=== PATIENT | female | born 1940 | race Caucasian/White ===

== ENCOUNTER → 2016-07-30 | Outpatient (CLI) | payer MEDICARE, OTHER ==
--- NOTE | 2016-07-31 08:19 | WOMENS IMAGING REPORT ---
EXAM DESCRIPTION: BILAT SCREENING MAMMO W/CAD COMPLETED DATE/TIME: 07/30/2016 8:41 am REASON FOR STUDY: Z12.31 ROUTINE SCREENING MAMMO Z12.31 ENCNTR SCREEN MAMMOGRAM FOR MALIGNANT NEOPL ASM OF [place] COMPARISON: Multiple since 2007 TECHNIQUE: Standard craniocaudal and mediolateral oblique views of each breast recorded using [employer] l acquisition. LIMITATIONS: None. FINDINGS: Findings present which are benign by mammographic criteria. No suspicious masses, calcifi cations or architectural distortion. Read with the assistance of CAD. .[facility] - R2 Cenova Version 1.3 .[facility] Imaging - R2 Cenova Version 1.3 .[facility] Imaging - R2 Cenova Version 2.4 .[facility] [place] - R2 Cenova Version 2.4 .[facility] - R2 Warehouse Delivery Driver Version 9.2 Benign mammographic findings may include one or more of the following: Smooth masses, popcorn/rim/co arse calcifications, asymmetries, post-procedure changes, and lesions with long-standing stability. BREAST DENSITY: b. There are scattered areas of fibroglandular density. BIRAD: 2 BENIGN FINDING(S) RECOMMENDATION: ROUTINE SCREENING COMMENT: PATIENT NOTIFIED BY LETTER. The [employer] recommends an annual screening mammogram for women aged 40 years or over. Each patient will receive a reminder prior to the anniversary date of her mammogram. The [employer] (ACR) has developed recommendations for screening MRI of the breast s in certain patient populations, to be used in conjunction with mammography. Breast MRI surveillanc e may be appropriate for women with more than 20% lifetime risk of developing breast cancer as deter mined by genetic testing, significant family history of the disease, or history of mantle radiation f or Hodgkins Disease. ACR Practice Guidelines 2008. TECHNICAL DOCUMENTATION: FINDING NUMBER: (1) ASSESSMENT: (1) JOB ID: [id number] [employer]- All Rights Reserved
== END ==
LOC: WI 08:23
PROVIDERS: ATTEND Family Medicine
DX: Z12.31 Encounter for screening mammogram for malignant neoplasm of breast (principal)
CPT/HCPCS: 77067; G0202

== ENCOUNTER → 2017-08-06 | Outpatient (CLI) | payer MEDICARE, OTHER ==
--- NOTE | 2017-08-06 11:10 | WOMENS IMAGING REPORT ---
EXAM DESCRIPTION: BONE DENSITY HIP/SPINE COMPLETED DATE/TIME: 08/06/2017 10:11 am REASON FOR STUDY: ASYMPTOMATIC MENOPAUSAL STATE/ SCREENING MAMMO Z78.0 ASYMPTOMATIC MENOPAUSAL STAT E Z12.31 ENCNTR SCREEN MAMMOGRAM FOR MALIGNANT NEOPLASM OF [place] COMPARISON: None. TECHNIQUE: Dual-Energy X-ray Absorptiometry (DEXA) of the AP Spine and Hip. LIMITATIONS: None. FINDINGS: LUMBAR SPINE: The bone mineral density (BMD) measured from L1-L4 in the AP projection correlates with a T-score of -0.3, which is normal as defined by the World Health Organization. HIP: The bone mineral density (BMD) measured in the left femoral neck at the hip correlates with a T-score of -1.4, which is osteopenic as defined by the World Health Organization. IMPRESSION: 1. LUMBAR SPINE: Normal 2. HIP: Osteopenic COMMENT: The World Health Organization defines low BMD as follows: T-score: Normal: Greater than -1.0 Osteopenia: Between -1.0 and -2.5 Osteoporosis: Less than -2.5 without fractures Established osteoporosis: Less than -2.5 with fractures In general, you may wish to consider: Diagnosis Treatment Follow-up DEXA Normal BMD Prevention 2-3 years Osteopenia Prevention/Therapy 1-2 years Osteoporosis Therapy Yearly TECHNICAL DOCUMENTATION: JOB ID: [id number] [id number]- All Rights Reserved
--- NOTE | 2017-08-07 08:27 | WOMENS IMAGING REPORT ---
EXAM DESCRIPTION: 3D SCREENING MAMMO BILAT COMPLETED DATE/TIME: 08/06/2017 10:11 am REASON FOR STUDY: ASYMPTOMATIC MENOPAUSAL STATE/ SCREENING MAMMO Z78.0 ASYMPTOMATIC MENOPAUSAL STAT E Z12.31 ENCNTR SCREEN MAMMOGRAM FOR MALIGNANT NEOPLASM OF [place] COMPARISON: 2012 to 2016 TECHNIQUE: Standard craniocaudal and mediolateral oblique views of each breast recorded using digita l acquisition and breast tomosynthesis. LIMITATIONS: None. FINDINGS: No masses, calcifications or architectural distortion. No areas of suspicion. Read with the assistance of CAD. .[facility] - R2 Cenova Version 1.3 .[facility] Imaging - R2 Cenova Version 1.3 .[facility] Imaging - R2 Cenova Version 2.4 .[facility] [place] - R2 Cenova Version 2.4 .[facility] - R2 Senior Designer Version 9.2 IMPRESSION: NORMAL MAMMOGRAM. BIRADS 1. BREAST DENSITY: b. There are scattered areas of fibroglandular density. BIRAD: 1 NEGATIVE RECOMMENDATION: ROUTINE SCREENING COMMENT: The patient has been notified of the results by letter per MQSA requirements. Additional no tification policies are in place for contacting patient with suspicious or incomplete findings. Quality ID #[id number]: The [employer] recommends an annual screening mammogram for women aged 40 years or over. This facility utilizes a reminder system to ensure that all patients receive reminder letters, and/or direct phone calls for appointments. This includes reminders for routine scr eening mammograms, diagnostic mammograms, or other Breast Imaging Interventions when appropriate. Th is patient will be placed in the appropriate reminder system. The [employer] (ACR) has developed recommendations for screening MRI of the breast s in certain patient populations, to be used in conjunction with mammography. Breast MRI surveillanc e may be appropriate for women with more than 20% lifetime risk of developing breast cancer as deter mined by genetic testing, significant family history of the disease, or history of mantle radiation f or Hodgkins Disease. ACR Practice Guidelines 2008. DBT Technology DBT is a type of tomographic mammography. With conventional mammography, overlapping breast tissue ma y make lesions difficult to detect, even with good compression. DBT uses an x-ray tube that rotates a round the breast, taking images at different angles. These images are then combined to create thin sl ices of the breast that the radiologist can view as a 3D reconstruction. The [employer] unit can perform full-field digital mammograms (2D imaging); or DBT (3D imaging); or both, in a combination mode that quickly performs both the mammogram and the tomosynthesis scan while the breast is still compressed. PQRS 6045F: Fluoroscopic imaging is not utilized for breast tomosynthesis. TECHNICAL DOCUMENTATION: FINDING NUMBER: (1) ASSESSMENT: (1) JOB ID: [id number] [employer]- All Rights Reserved
== END ==
LOC: WI 08:59
PROVIDERS: ATTEND Family Medicine
DX: Z12.31 Encounter for screening mammogram for malignant neoplasm of breast (principal); M85.88 Other specified disorders of bone density and structure, other site; Z78.0 Asymptomatic menopausal state
CPT/HCPCS: 77063; 77067; 77080

== ENCOUNTER → 2018-08-07 | Outpatient (CLI) | payer MEDICARE, OTHER ==
--- NOTE | 2018-08-07 16:13 | WOMENS IMAGING REPORT ---
EXAM DESCRIPTION: BILAT SCREENING MAMMO W/CAD COMPLETED DATE/TIME: 08/07/2018 9:57 am REASON FOR STUDY: ROUTINE BILATERAL SCREENING,Z12.31 Z12.31 ENCNTR SCREEN MAMMOGRAM FOR MALIGNANT N EOPLASM OF [place] COMPARISON: [id number] TECHNIQUE: Standard craniocaudal and mediolateral oblique views of each breast recorded using [employer] l acquisition. LIMITATIONS: None. FINDINGS: No masses, calcifications or architectural distortion. No areas of suspicion. Read with the assistance of CAD. .[facility] - R2 Cenova Version 1.3 .[facility] Imaging - R2 Cenova Version 2.1 .[facility] Imaging - R2 Cenova Version 2.4 .[facility] - R2 Cenova Version 2.4 .[facility] - R2 Loss Control Technician Version 9.2 IMPRESSION: NORMAL MAMMOGRAM. BIRADS 1. BREAST DENSITY: b. There are scattered areas of fibroglandular density. BIRAD: 1 NEGATIVE RECOMMENDATION: ROUTINE SCREENING COMMENT: The patient has been notified of the results by letter per MQSA requirements. Additional no tification policies are in place for contacting patient with suspicious or incomplete findings. Quality ID #[id number]: The [employer] recommends an annual screening mammogram for women aged 40 years or over. This facility utilizes a reminder system to ensure that all patients receive reminder letters, and/or direct phone calls for appointments. This includes reminders for routine scr eening mammograms, diagnostic mammograms, or other Breast Imaging Interventions when appropriate. Th is patient will be placed in the appropriate reminder system. The [employer] (ACR) has developed recommendations for screening MRI of the breast s in certain patient populations, to be used in conjunction with mammography. Breast MRI surveillanc e may be appropriate for women with more than 20% lifetime risk of developing breast cancer as deter mined by genetic testing, significant family history of the disease, or history of mantle radiation f or Hodgkins Disease. ACR Practice Guidelines 2008. TECHNICAL DOCUMENTATION: FINDING NUMBER: (1) ASSESSMENT: (1) JOB ID: [id number] [employer]- All Rights Reserved Reading location - IP/workstation name: [email or web address]
== END ==
LOC: WI 09:34
PROVIDERS: ATTEND Family Medicine
DX: Z12.31 Encounter for screening mammogram for malignant neoplasm of breast (principal)
CPT/HCPCS: 77067

== ENCOUNTER 2018-12-23 06:37 | Emergency (ER) | payer MEDICARE, OTHER ==
[2018-12-23] MEDS ORDERED: NORMAL SALINE 1000 ML 1,000 ML IV ONE (07:49)
[2018-12-23] MEDS ORDERED: ONDANSETRON HCL INJ/PF 4 MG/2 ML SDV IV ONE (07:49)
[2018-12-23 08:10] LABS: ALANINE AMINOTRANSFERASE 15 U/L (9-52); ALBUMIN 4.7 g/dL (3.5-5.0); ALKALINE PHOSPHATASE 57 U/L (38-126); ANION GAP 10 (5-19); ASPARTATE AMINO TRANSFERASE 24 U/L (14-36); BILIRUBIN,DIRECT 0.4 mg/dL (0.0-0.4); BILIRUBIN,TOTAL 1.2 mg/dL (0.2-1.3); BLOOD UREA NITROGEN 17 mg/dL (7-20); CALCIUM 9.9 mg/dL (8.4-10.2); CARBON DIOXIDE 27 mmol/L (22-30); CHLORIDE 104 mmol/L (98-107); GLUCOSE 142 mg/dL (75-110); LIPASE 127.2 U/L (23-300); POTASSIUM 4.1 mmol/L (3.6-5.0); SODIUM 141.4 mmol/L (137-145)
[2018-12-23 08:11] LABS: ABSOLUTE LYMPHOCYTES (AUTO) 1.9 10^3/uL (0.5-4.7); ABSOLUTE MONOCYTES (AUTO) 0.3 10^3/uL (0.1-1.4); ABSOLUTE NEUT (AUTO) 8.5 10^3/uL (1.7-8.2); BASOPHILS % (AUTO) 0.3 % (0-2); EOSINOPHILS % (AUTO) 0.1 % (0-6); HEMATOCRIT 38.4 % (36.0-47.0); HEMOGLOBIN 13.2 g/dL (12.0-15.5); LYMPHOCYTES % (AUTO) 17.7 % (13-45); MEAN CORPUSCULAR HEMOGLOBIN 29.4 pg (27.0-33.4); MEAN CORPUSCULAR HGB CONC 34.4 g/dL (32.0-36.0); MEAN CORPUSCULAR VOLUME 85 fl (80-97); PLATELET COUNT 229 10^3/uL (150-450); RED BLOOD COUNT 4.49 10^6/uL (3.72-5.28); SEGMENTED NEUTROPHILS % (AUTO) 78.9 % (42-78); TOTAL CELLS COUNTED % (AUTO) 100 %; WHITE BLOOD COUNT 10.8 10^3/uL (4.0-10.5)
[2018-12-23 08:20] LABS: APPEARANCE,URINE SLIGHTLY-CLOUDY; BILIRUBIN,URINE NEGATIVE (NEGATIVE); COLOR,URINE YELLOW; GLUCOSE, URINE 50 mg/dL (NEGATIVE); KETONES,URINE NEGATIVE (NEGATIVE); LEUKOCYTE ESTERASE,URINE TRACE (NEGATIVE); NITRITE,URINE NEGATIVE (NEGATIVE); PROTEIN,URINE 100 mg/dL (NEGATIVE); UROBILINOGEN,URINE NEGATIVE mg/dL (<2.0)
--- NOTE | 2018-12-23 09:24 | RADIOLOGY REPORT (SQ) ---
EXAM DESCRIPTION: CT ABD/PELVIS WITH IV ONLY COMPLETED DATE/TIME: 12/23/2018 8:59 am REASON FOR STUDY: upper abd pain n/v COMPARISON: None. TECHNIQUE: CT scan of the abdomen and pelvis performed using helical scanning technique with dynamic intravenous contrast injection. No oral contrast. Images reviewed with lung, soft tissue, and bone windows. Reconstructed coronal and sagittal MPR images reviewed. Delayed images for evaluation of the urinary system also acquired. All images stored on PACS. All CT scanners at this facility use dose modulation, iterative reconstruction, and/or weight based d osing when appropriate to reduce radiation dose to as low as reasonably achievable (ALARA). [facility]: Dose Right [facility]: CareDose [facility]: Dose Right [facility]: Teradose 4D [facility]: Asthmatracker CONTRAST TYPE AND DOSE: contrast/concentration: Isovue 300.00 mg/ml; Total Contrast Delivered: 94.0 ml; Total Saline Delivered: 68.0 ml RENAL FUNCTION: Creatinine 1.3 RADIATION DOSE: CT Rad equipment meets quality standard of care and radiation dose reduction techniq ues were employed. CTDIvol: 11.8 - 15.7 mGy. DLP: 1450 mGy-cm.. LIMITATIONS: None. FINDINGS: LOWER CHEST: No significant findings. No nodules or infiltrates. Small hiatal hernia LIVER: Normal size. No masses. No dilated ducts. Multiple hepatic cysts, the largest is 1.7 cm kelly g the left lobe at the falciform ligament. SPLEEN: Normal size. No focal lesions. PANCREAS: No masses. No significant calcifications. No adjacent inflammation or peripancreatic fluid collections. Pancreatic duct not dilated. GALLBLADDER: Multiple calcified gallstones. No gallbladder wall thickening or pericholecystic fluid ADRENAL GLANDS: No significant masses or asymmetry. RIGHT KIDNEY AND URETER: No solid masses. No significant calcifications. No hydronephrosis or hyd roureter. LEFT KIDNEY AND URETER: No solid masses. 2.8 cm left upper pole renal cortical cyst. No significant calcifications. No hydronephrosis or hydroureter. AORTA AND VESSELS: No aneurysm. No dissection. Renal arteries, SMA, celiac without stenosis. RETROPERITONEUM: No retroperitoneal adenopathy, hemorrhage or masses. BOWEL AND PERITONEAL CAVITY: No masses or inflammatory changes. No free fluid or peritoneal masses. No CT evidence of bowel obstruction. There are descending and sigmoid colon diverticuli without CT s igns of acute diverticulitis. APPENDIX: Normal. PELVIS: No mass. No free fluid. Normal bladder. Normal size female pelvic organs. ABDOMINAL WALL: No masses. No hernias. BONES: No significant or acute findings. OTHER: No other significant finding. IMPRESSION: NO SIGNIFICANT OR ACUTE FINDING IN THE ABDOMEN OR PELVIS ON CT SCAN WITH IV CONTRAST. TECHNICAL DOCUMENTATION: JOB ID: [id number] Quality ID # [id number]: Final reports with documentation of one or more dose reduction techniques (e.g., Au tomated exposure control, adjustment of the mA and/or kV according to patient size, use of iterative reconstruction technique) 2010 [employer]- All Rights Reserved Reading location - IP/workstation name: [email or web address]
[2018-12-23] MEDS ORDERED: CEFTRIAXONE 1 GM/D5W RTU 1 GM/50 ML RTUPB IV ONE (09:53)
--- NOTE | 2018-12-23 10:08 | ER Document Report ---
ED General - General Chief Complaint: Nausea/Vomiting Stated Complaint: THROWING UP Time Seen by Provider: 12/23/18 07:43 Primary Care Provider: SHARONA MILLER MD [Primary Care Provider] - Follow up in 1 week TRAVEL OUTSIDE OF THE [place] IN LAST 30 DAYS: No - HPI Patient complains to provider of: Nausea vomiting upper abdominal pain Notes: Patient coming in for nausea vomiting upper abdominal pain starting yesterday. Patient states she is done approximate 10 times. Patient denies any fevers chills or diarrhea. Patient states she had a hamburger yesterday was able to tolerate this. Patient states diffuse upper abdominal pain denies any past surgical history. Patient otherwise resting healthy upon my evaluation - Related Data Allergies/Adverse Reactions: Sulfa (Sulfonamide Antibiotics) Allergy (Verified 12/23/18 06:43) Tetanus Vaccines and Toxoid Allergy (Verified 12/23/18 06:43) Past Medical History - Social History Smoking Status: Unknown if Ever Smoked Family History: Reviewed & Not Pertinent Patient has suicidal ideation: No Patient has homicidal ideation: No Renal/ Medical History: Denies: Hx Peritoneal Dialysis Review of Systems - Review of Systems Constitutional: No symptoms reported EENT: No symptoms reported Cardiovascular: No symptoms reported Respiratory: No symptoms reported Gastrointestinal: Nausea, Vomiting Genitourinary: No symptoms reported Female Genitourinary: No symptoms reported Musculoskeletal: No symptoms reported Skin: No symptoms reported Hematologic/Lymphatic: No symptoms reported Neurological/Psychological: No symptoms reported -: Yes All other systems reviewed and negative Physical Exam - Vital signs Vitals: Temp Pulse Resp BP 97.4 F 79 18 205/95 H 12/23/18 07:56 12/23/18 07:56 12/23/18 07:56 12/23/18 07:56 Interpretation: Normal - General General appearance: Appears well, Alert - HEENT Head: Normocephalic, Atraumatic Eyes: Normal Pupils: PERRL - Respiratory Respiratory status: No respiratory distress Chest status: Nontender Breath sounds: Normal Chest palpation: Normal - Cardiovascular Rhythm: Regular Heart sounds: Normal auscultation Murmur: No - Abdominal Inspection: Normal Distension: No distension Bowel sounds: Normal Tenderness: Nontender Organomegaly: No organomegaly - Back Back: Normal, Nontender - Extremities General upper extremity: Normal inspection, Nontender, Normal color, Normal ROM, Normal temperature General lower extremity: Normal inspection, Nontender, Normal color, Normal ROM, Normal temperature, Normal weight bearing. No: Boo's sign - Neurological Neuro grossly intact: Yes Cognition: Normal Orientation: AAOx4 Rosales Coma Scale Eye Opening: Spontaneous Rosales Coma Scale Verbal: Oriented Rosales Coma Scale Motor: Obeys Commands Rosales Coma Scale Total: 15 Speech: Normal Motor strength normal: LUE, RUE, LLE, RLE Sensory: Normal - Psychological Associated symptoms: Normal affect, Normal mood - Skin Skin Temperature: Warm Skin Moisture: Dry Skin Color: Normal Course - Re-evaluation Re-evalutation: 12/23/18 14:13 The patient presents with abdominal pain without signs of peritonitis or other life-threatening or serious etiology. The patient appears stable for discharge and has been instructed to return immediately if the symptoms worsen in any way, or in 8-12hr if not improved for re-evaluation. The patient has been instructed to return if the symptoms worsen or change in any way. UTI possibly causing nausea vomiting patient feeling better after Zofran will discharge patient home with Zofran will treat UTI with Keflex. - Vital Signs Vital signs: Temp Pulse Resp BP Pulse Ox 98.3 F 76 18 186/70 H 12/23/18 10:38 12/23/18 10:38 12/23/18 10:38 12/23/18 10:38 - Laboratory Result Diagrams: 12/23/18 07:26 12/23/18 07:26 Laboratory results interpreted by me: 12/23/18 12/23/18 12/23/18 07:26 07:26 07:26 WBC 10.8 H Seg Neutrophils % 78.9 H Absolute Neutrophils 8.5 H Est GFR ( Amer) 51 L Est GFR (Non-Af Amer) 42 L Glucose 142 H Urine Protein 100 H Urine Glucose (UA) 50 H Ur Leukocyte Esterase TRACE H Discharge - Discharge Clinical Impression: Nausea & vomiting Qualifiers: Vomiting type: unspecified Vomiting Intractability: unspecified Qualified Code(s): R11.2 - Nausea with vomiting, unspecified UTI (urinary tract infection) Qualifiers: Urinary tract infection type: site unspecified Hematuria presence: without laci turia Qualified Code(s): N39.0 - Urinary tract infection, site not specified Condition: Good Disposition: HOME, SELF-CARE Instructions: Nausea or Vomiting, Nonspecific ([facility]), Urinary Tract Infection ([facility]), Vomiting ([facility]) Additional Instructions: CT scan laboratory studies are negative except for signs of a possible UTI. I recommend she follow-up with your primary care physician return to the ER symptoms worsen take medications as prescribed. Prescriptions: Cephalexin Monohydrate [Keflex 500 mg Capsule] 500 mg PO QID #20 capsule Ondansetron [Zofran Odt 4 mg Tablet] 1 - 2 tab PO Q4H PRN #30 tab.rapdis PRN Reason: For Nausea/Vomiting Referrals: SHARONA MILLER MD [Primary Care Provider] - Follow up in 1 week
[2018-12-23 10:40] VITALS: BP 186/70
--- NOTE | 2018-12-23 20:31 | EKG REPORT ---
SEVERITY:- NORMAL ECG - SINUS RHYTHM : Confirmed by: Kesha Kirk 23-Dec-2018 20:30:53
== END 2018-12-23 10:38 | disposition home or self-care (01) ==
LOC: ER 06:37
DX: R11.2 Nausea with vomiting, unspecified (principal); N39.0 Urinary tract infection, site not specified; R10.10 Upper abdominal pain, unspecified; Z88.2 Allergy status to sulfonamides; Z88.7 Allergy status to serum and vaccine
CPT/HCPCS: 93005; 99284; 96361; 96375; 96365; 36415; 83690; 85025; 80053; 81001; 74177; 93010; J2405; J7030; J0696

== ENCOUNTER → 2019-01-02 | Outpatient (CLI) | payer MEDICARE, OTHER ==
[2019-01-02 09:29] LABS: APPEARANCE,URINE CLOUDY; BILIRUBIN,URINE NEGATIVE (NEGATIVE); COLOR,URINE YELLOW; GLUCOSE, URINE NEGATIVE (NEGATIVE); KETONES,URINE NEGATIVE (NEGATIVE); LEUKOCYTE ESTERASE,URINE LARGE (NEGATIVE); NITRITE,URINE NEGATIVE (NEGATIVE); PROTEIN,URINE 100 mg/dL (NEGATIVE); URINE SPECIFIC GRAVITY 1.019; UROBILINOGEN,URINE NEGATIVE mg/dL (<2.0)
--- NOTE | 2019-01-02 13:59 | EKG REPORT ---
SEVERITY:- NORMAL ECG - SINUS RHYTHM : Confirmed by: Kesha Kirk 02-Jan-2019 13:58:46
== END ==
LOC: OD 08:35
PROVIDERS: ATTEND Family Medicine
DX: N39.0 Urinary tract infection, site not specified (principal); R55 Syncope and collapse
CPT/HCPCS: 81001; 87086; 93005; 93010

== ENCOUNTER 2019-01-20 11:10 | Day surgery (SDC) | payer MEDICARE, OTHER ==
[2019-01-16 10:28] LABS: HEMATOCRIT 35.3 % (36.0-47.0); MEAN CORPUSCULAR HEMOGLOBIN 29.1 pg (27.0-33.4); MEAN CORPUSCULAR VOLUME 86 fl (80-97); PLATELET COUNT 211 10^3/uL (150-450); RED BLOOD COUNT 4.12 10^6/uL (3.72-5.28); RED CELL DISTRIBUTION WIDTH 13.9 % (11.5-14.0); WHITE BLOOD COUNT 5.2 10^3/uL (4.0-10.5)
[2019-01-16 10:49] LABS: BLOOD UREA NITROGEN 14 mg/dL (7-20); CALCIUM 9.5 mg/dL (8.4-10.2); CHLORIDE 106 mmol/L (98-107); GLUCOSE 97 mg/dL (75-110); POTASSIUM 4.7 mmol/L (3.6-5.0)
[2019-01-16 10:50] LABS: ALANINE AMINOTRANSFERASE 19 U/L (9-52); ALKALINE PHOSPHATASE 57 U/L (38-126); AMYLASE 84 U/L (30-110); ANION GAP 5 (5-19); ASPARTATE AMINO TRANSFERASE 18 U/L (14-36); BILIRUBIN,DIRECT 0.2 mg/dL (0.0-0.4); BILIRUBIN,TOTAL 0.6 mg/dL (0.2-1.3); CARBON DIOXIDE 31 mmol/L (22-30); TOTAL PROTEIN 6.7 g/dL (6.3-8.2)
[~2019-01-20 11:10] MED LIST: ACETAMINOPHEN 325 MG TABLET PO PRN; CEFAZOLIN 1 GM/D5W RTU 1 GM/50 ML RTUPB IV ONE; CEFAZOLIN 1 GM/D5W RTU 1 GM/50 ML RTUPB IV PRN; CEFAZOLIN SODIUM 2 GM in DEXTROSE 5%-WATER 100 ML IV PRN; LACTATED RINGERS 1000 ML IV PRN; LIDOCAINE 0.5% INJ-PF (5 MG/ML) 50 ML SDV SUBCUT PRN; METRONIDAZOLE 500 MG/NS RTU 500 MG/100 ML RTUPB IV ONE; METRONIDAZOLE 500 MG/NS RTU 500 MG/100 ML RTUPB IV PRN
[2019-01-20] MEDS ORDERED: BUPIVACAINE HCL 0.25% /EPINEPHRINE INJ/PF 30 ML SDV ONE (12:23)
[2019-01-20] MEDS ORDERED: FENTANYL CITRATE INJ/PF 100 MCG/2 ML AMPUL ONE ×2 (12:57→14:25)
[2019-01-20] MEDS ORDERED: DEXAMETHASONE SOD PHOSPHATE INJ 4 MG/1 ML VIAL ONE (12:57)
[2019-01-20] MEDS ORDERED: ONDANSETRON HCL INJ/PF 4 MG/2 ML SDV ONE (12:57)
[2019-01-20] MEDS ORDERED: MIDAZOLAM 2 MG/2 ML INJ ONE (12:57)
[2019-01-20] MEDS ORDERED: PROPOFOL INJ 200 MG/20 ML VIAL IV ONE (12:58)
[2019-01-20] MEDS ORDERED: SUGAMMADEX SODIUM 200 MG/2 ML SDV IV ONE (12:58)
[2019-01-20] MEDS ORDERED: HYDROMORPHONE HCL INJ/PF 2 MG/ML AMPULE ONE (13:07)
[2019-01-20] MEDS ORDERED: PROMETHAZINE HCL INJ 25 MG/1 ML VIAL IV PRN ×2 (13:58)
[2019-01-20] MEDS ORDERED: FENTANYL CITRATE INJ/PF 100 MCG/2 ML AMPUL IV PRN ×3 (13:58)
[2019-01-20] MEDS ORDERED: DIPHENHYDRAMINE HCL 50 MG/ML VIAL IV PRN (13:58)
[2019-01-20] MEDS ORDERED: MEPERIDINE HCL/PF INJ 25 MG/1 ML DISP.SYRIN IV PRN (13:58)
--- NOTE | 2019-01-20 14:12 | Operative Report ---
Nonrecallable Operative Report DATE OF SURGERY: 01/20/19 PREOPERATIVE DIAGNOSIS: cholelithiasis POSTOPERATIVE DIAGNOSIS: cholelithiasis OPERATION: laparoscopic cholecystectomy SURGEON: ROGER WILKINS ANESTHESIA: GA TISSUE REMOVED OR ALTERED: gallbladder COMPLICATIONS: none ESTIMATED BLOOD LOSS: 10cc INTRAOPERATIVE FINDINGS: see dictation PROCEDURE: see dictation
--- NOTE | 2019-01-20 14:14 | Discharge Summary ---
Discharge Summary (SDC) - Discharge Final Diagnosis: cholelithiasis Date of Surgery: 01/20/19 Discharge Date: 01/20/19 Condition: Good Treatment or Instructions: no wt greater than 10lbs ok to shower tomorrow. Referrals: SHARONA MILLER MD [Primary Care Provider] - Discharge Diet: As Tolerated Discharge Activity: Activity As Tolerated, No Lifting Over 10 Pounds, No tub bath Report the Following to Your Physician Immediately: Shortness of Breath, Nausea, Vomiting, Increase in Pain, Yellow Skin - post op appoint in 7-10 days., Unusual Bleeding
[2019-01-20] MEDS ORDERED: OXYCODONE-ACETAMINOPHEN 5-325 MG TABLET PO PRN (14:15)
--- NOTE | 2019-01-20 14:40 | OPERATIVE REPORT E ---
Operative Report NAME: ZION DRAPER : 1940 AGE: 78Y DATE OF SURGERY: 01/20/2019 ROOM: PREOPERATIVE DIAGNOSIS: CHOLELITHIASIS. POSTOPERATIVE DIAGNOSIS: CHOLELITHIASIS. OPERATION: Laparoscopic cholecystectomy. SURGEON: ROGER WILKINS M.D. PROCEDURE: Patient was brought to the operating room in awake, alert, and stable condition and placed on the operative table in supine position, induced under general anesthesia, and intubated. The abdomen was prepped and draped in usual sterile manner for the procedure. After an appropriate timeout and site verification, a Veress needle was placed into the umbilicus. The abdomen was insufflated with 6 liters of CO2 gas. An infraumbilical 10 mm incision was made with a 15 blade and a 10 mm port placed in the abdominal cavity. Intraabdominal visualization revealed no evidence of a Veress needle or trocar injury. Two lateral 5 mm ports were placed under direct vision and 1 epigastric 5 mm port. The gallbladder was identified. It was noted to be distended. A cholecystostomy needle was used to decompress the gallbladder. Once this was done, it was placed on traction. The hepatoduodenal ligament was dissected, isolated from the cystic duct and cystic artery. Two Endoclips were placed in the stay side and 1 in the specimen side of both those structures and after visualization of the critical view angle, they were divided. The gallbladder was then dissected out of the liver bed with Bovie cautery, placed in an Endobag and removed through the umbilical port site. The right upper quadrant was irrigated with normal saline, suctioned dry. The umbilical port site was closed with a [id number] 0-Vicryl suture and all skin incisions were closed with intracuticular 4-0 Biosyn. Steri-Strips completed the procedure. Estimated blood loss was less than 10 mL. Sponge and needle counts correct x2. The patient was awoken in the operating room, extubated, and transferred to Recovery in stable condition, no complications. DICTATING PHYSICIAN: ROGER WILKINS M.D. [id number] PHY#: [id number] ID: [id number] JOB#: [id number] ACCT: [id number] cc:ROGER WILKINS M.D. >
[2019-01-20] MEDS ORDERED: PROMETHAZINE HCL INJ 25 MG/1 ML VIAL ONE (14:57)
[2019-01-20 17:15] VITALS: BP 160/77
== END 2019-01-20 17:05 | disposition home or self-care (01) ==
LOC: OROUT 11:10
PROVIDERS: ATTEND Surgery
DX: K80.12 Calculus of gallbladder with acute and chronic cholecystitis without obstruction (principal); I12.9 Hypertensive chronic kidney disease with stage 1 through stage 4 chronic kidney disease, or unspecified chronic kidney disease; N18.3 Chronic kidney disease, stage 3 (moderate); Z01.818 Encounter for other preprocedural examination; Z79.899 Other long term (current) drug therapy; Z79.82 Long term (current) use of aspirin
CPT/HCPCS: 86900; 86901; 36415; 86850; 82150; 85027; 80076; 80048; 88304 ×2; 47562; J2250; J3490 ×3; J0690 ×2; J1100; J3010; J1170; J2550; J2405; J7060; J2704; 790

== ENCOUNTER → 2019-09-16 | Outpatient (CLI) | payer MEDICARE, OTHER ==
--- NOTE | 2019-09-16 14:05 | WOMENS IMAGING REPORT ---
EXAM DESCRIPTION: 3D SCREENING MAMMO BILAT COMPLETED DATE/TIME: 09/16/2019 11:37 am REASON FOR STUDY: Z12.31 SCREENING MAMMO Z12.31 ENCNTR SCREEN MAMMOGRAM FOR MALIGNANT NEOPLASM OF B RE COMPARISON: Multiple since 2007 EXAM PARAMETERS: Views: Standard craniocaudal and mediolateral oblique views of each breast recorded using digital acquisition and breast tomosynthesis. Read with the assistance of CAD. .[facility] - [employer] Biometric Screener Version 9.2 LIMITATIONS: None. FINDINGS: No suspicious masses, suspicious calcifications or architectural distortion. No areas of c oncern. IMPRESSION: NEGATIVE MAMMOGRAM. BIRADS 1. BREAST DENSITY: b. There are scattered areas of fibroglandular density. BIRAD: ASSESSMENT: 1 NEGATIVE RECOMMENDATION: ROUTINE SCREENING Please continue yearly bilateral screening mammography/tomosynthesis in August 2020 COMMENT: The patient has been notified of the results by letter per [place] requirements. Additional no tification policies are in place for contacting patient with suspicious or incomplete findings. Quality ID #[id number]: The [place] [employer] [employer] recommends an annual screening mammogram for women aged 40 years or over. This facility utilizes a reminder system to ensure that all patients receive reminder letters, and/or direct phone calls for appointments. This includes reminders for routine scr eening mammograms, diagnostic mammograms, or other Breast Imaging Interventions when appropriate. Th is patient will be placed in the appropriate reminder system. TECHNICAL DOCUMENTATION: FINDING NUMBER: (1) ASSESSMENT: (1) JOB ID: [id number] 2010 [email or web address]- All Rights Reserved Reading location - IP/workstation name: [email or web address]
== END ==
LOC: WI 11:10
PROVIDERS: ATTEND Family Medicine
DX: Z12.31 Encounter for screening mammogram for malignant neoplasm of breast (principal)
CPT/HCPCS: 77063; 77067

== ENCOUNTER 2019-12-31 09:05 | Day surgery (SDC) | payer MEDICARE, OTHER ==
[~2019-12-31 09:05] MED LIST changes: -ACETAMINOPHEN 325 MG TABLET PO PRN; -CEFAZOLIN 1 GM/D5W RTU 1 GM/50 ML RTUPB IV ONE; -CEFAZOLIN 1 GM/D5W RTU 1 GM/50 ML RTUPB IV PRN; -CEFAZOLIN SODIUM 2 GM in DEXTROSE 5%-WATER 100 ML IV PRN; +KETOROLAC TROMETHAMINE 0.45% 4 DROP/0.4 ML DROPERETTE OS PRN; -LACTATED RINGERS 1000 ML IV PRN; -LIDOCAINE 0.5% INJ-PF (5 MG/ML) 50 ML SDV SUBCUT PRN; -METRONIDAZOLE 500 MG/NS RTU 500 MG/100 ML RTUPB IV ONE; -METRONIDAZOLE 500 MG/NS RTU 500 MG/100 ML RTUPB IV PRN
[2019-12-31] MEDS ORDERED: MIDAZOLAM 2 MG/2 ML INJ ONE (09:28)
[2019-12-31] MEDS ORDERED: ONDANSETRON HCL INJ/PF 4 MG/2 ML SDV ONE (09:28)
[2019-12-31] MEDS ORDERED: FENTANYL CITRATE INJ/PF 100 MCG/2 ML AMPUL ONE (09:29)
[2019-12-31] MEDS: CYCLOPENTOLATE 0.2%/PHENYLEPHRINE 1% OPH SOLN 2 ML OS PRN ×3 (10:05→10:23)
[2019-12-31] MEDS: BESIFLOXACIN HCL 0.6% OPH SUSP 5 ML BOTTLE OS PRN ×4 (10:05→11:11)
[2019-12-31] MEDS: TROPICAMIDE 1% OPH SOLN 15 ML OS PRN ×3 (10:05→10:24)
[2019-12-31] MEDS: TETRACAINE HCL 0.5% OPH SOLN 4 ML OS PRN ×4 (10:05→10:35)
[2019-12-31] MEDS: EPINEPHRINE INJ/PF 1 MG/1 ML AMPULE ONE ×2 (10:43)
[2019-12-31] MEDS: LIDOCAINE 1%/PHENYLEPHRINE 1.5% 1 ML VIAL ONE ×2 (10:43)
[2019-12-31] MEDS: CHONDR SU A NA/HYALUR INTRAOC KIT (SURGICARE) ONE ×2 (10:43)
[2019-12-31] MEDS: DORZOLAMIDE HCL 2%/TIMOLOL MALEAT 0.5% OPH SOLN 10 ML OS PRN ×2 (11:11)
--- NOTE | 2019-12-31 14:00 | Operative Report ---
Operative Report-[facility] Operative Report: DATE OF SURGERY: 12/31/2019 PREOPERATIVE DIAGNOSIS: Cataracts, left eye POSTOPERATIVE DIAGNOSIS: Cataract, left eye OPERATION: Cataract extraction with insertion of an IOL of the left eye. Intraocular Lens Model: [24.0 sn60wf] Reason for surgery was difficulty seeing the medicine bottles SURGEON: Chris Sumner MD ANESTHESIA: Topical PROCEDURE: After obtaining appropriate consent, the patient's left eye was prepped and draped in a sterile fashion as well as the surgeon in the sterile manner and cataract surgery was started. First a paracentesis blade was used to make a side-port incision. Viscoelastic was used to inflate the anterior chamber. Next a 2.4 mm incision was made with a 2.4 mm blade, clear corneal temporarily. A continuous capsulorrhexis was made using a cystotome and Utrata forceps. Following this hydrodissection was carried out to make the lens fully loose and mobile and it was rotated 90 degrees. Following this, a divide and conquer technique was used to phacoemulsify the lens. The remaining cortex was removed with an irrigation/aspiration. Provisc was instilled into the capsular bag to inflate the bag.The intraocular lens was placed. The remaining viscoelastic material was removed with irrigation/aspiration. Following this, the incision was found to be watertight. Besivance and Cosopt was instilled into the eye and a protective shield was placed over the eye. The patient was returned to the postoperative recovery in a stable condition.
== END 2019-12-31 11:43 | disposition home or self-care (01) ==
LOC: SC 09:05
PROVIDERS: ATTEND Internal Medicine
DX: H25.813 Combined forms of age-related cataract, bilateral (principal); H57.03 Miosis; H04.123 Dry eye syndrome of bilateral lacrimal glands; I10 Essential (primary) hypertension; E78.00 Pure hypercholesterolemia, unspecified; Z88.2 Allergy status to sulfonamides; Z79.82 Long term (current) use of aspirin; Z79.899 Other long term (current) drug therapy; Z85.828 Personal history of other malignant neoplasm of skin
CPT/HCPCS: 66984; V2632; J2250; J3490 ×2; A9270; J0171; J3010; J2405; 142

== ENCOUNTER 2020-01-21 11:17 | Day surgery (SDC) | payer MEDICARE, OTHER ==
[~2020-01-21 11:17] MED LIST changes: +CHONDR SU A NA/HYALUR INTRAOC KIT (SURGICARE) ONE; +EPINEPHRINE INJ/PF 1 MG/1 ML AMPULE ONE; +KETOROLAC TROMETHAMINE 0.45% 4 DROP/0.4 ML DROPERETTE OD PRN; -KETOROLAC TROMETHAMINE 0.45% 4 DROP/0.4 ML DROPERETTE OS PRN; +LIDOCAINE 1%/PHENYLEPHRINE 1.5% 1 ML VIAL ONE
[2020-01-21] MEDS ORDERED: MIDAZOLAM 2 MG/2 ML INJ ONE (11:33)
[2020-01-21] MEDS: BESIFLOXACIN HCL 0.6% OPH SUSP 5 ML BOTTLE OD PRN ×4 (12:01→13:02)
[2020-01-21] MEDS: CYCLOPENTOLATE 0.2%/PHENYLEPHRINE 1% OPH SOLN 2 ML OD PRN ×3 (12:01→12:21)
[2020-01-21] MEDS: TROPICAMIDE 1% OPH SOLN 15 ML OD PRN ×3 (12:01→12:21)
[2020-01-21] MEDS: TETRACAINE HCL 0.5% OPH SOLN 4 ML OD PRN ×3 (12:02→12:42)
[2020-01-21] MEDS: DORZOLAMIDE HCL 2%/TIMOLOL MALEAT 0.5% OPH SOLN 10 ML OD PRN ×2 (13:02)
--- NOTE | 2020-01-22 07:35 | Operative Report ---
Operative Report-[facility] Operative Report: DATE OF SURGERY: 01/21/2020 PREOPERATIVE DIAGNOSIS: Cataract, right eye POSTOPERATIVE DIAGNOSIS: Cataract, right eye OPERATION: Cataract extraction with insertion of an IOL of the right eye. Intraocular Lens Model: [24.0 sn60wf] Patient underwent surgery for difficulty with depth perception as well as difficulty driving at night SURGEON: Chris Sumner MD ANESTHESIA: Topical PROCEDURE: After obtaining appropriate consent, the patient's right eye was prepped and draped in a sterile fashion as well as the surgeon in the sterile manner and cataract surgery was started. First a paracentesis blade was used to make a side-port incision. Viscoelastic was used to inflate the anterior chamber. Next a 2.4 mm incision was made with a 2.4 mm blade, clear corneal temporarily. A continuous capsulorrhexis was made using a cystotome and Utrata forceps. Following this hydrodissection was carried out to make the raghav fully loose and mobile and it was rotated. Following this, a divide and conquer technique was used to phacoemulsify the raghav. The remaining cortex was removed with an irrigation/aspiration. Provisc was instilled into the capsular bag to inflate the bag. The intraocular lens was placed. The remaining viscoelastic material was removed with irrigation/aspiration. Following this, the incision was found to be watertight. Besivance and Cosopt was instilled into the eye and a protective shield was placed over the eye. The patient was reurned to the postoperative recovery in a stable condition.
== END 2020-01-21 13:34 ==
LOC: SC 11:17
PROVIDERS: ATTEND Internal Medicine
DX: H25.811 Combined forms of age-related cataract, right eye (principal); Z96.1 Presence of intraocular lens; H57.03 Miosis; E78.00 Pure hypercholesterolemia, unspecified; I10 Essential (primary) hypertension; Z85.828 Personal history of other malignant neoplasm of skin; Z79.899 Other long term (current) drug therapy; Z79.82 Long term (current) use of aspirin; Z88.2 Allergy status to sulfonamides
CPT/HCPCS: 66984; V2632; J2250; J3490 ×2; A9270; J0171

== ENCOUNTER → 2020-07-21 | Outpatient (CLI) | payer MEDICARE, OTHER ==
--- OUTSIDE RECORDS SUMMARY | 2020-07-21 08:39 | XMS REPORT ---
:1940 Author Organization [facility] Address [address] [address] Care Team Providers Name Role Phone Unavailable Unavailable Unavailable Allergies, Adverse Reactions, Alerts Allergy Allergy Type Status Severity Reaction(s) Onset Inactive Treat ing Comments Name Date Date Clinician TETANUS Miscellaneous Active U Rash 2018-0 VACCINES allergy 4-13 AND 00:00: TOXOID 00 Medications This patient has no known medications. Problems This patient has no known problems. Procedures This patient has no known procedures. Results This patient has no known results. Social History This patient has no known social history. Vital Signs This patient has no known vital signs.
[2020-07-21 09:56] LABS: ABSOLUTE EOSINOPHILS # (AUTO) 0.2 10^3/uL (0.0-0.6); ABSOLUTE LYMPHOCYTES (AUTO) 2.5 10^3/uL (0.5-4.7); ABSOLUTE MONOCYTES (AUTO) 0.4 10^3/uL (0.1-1.4); ABSOLUTE NEUT (AUTO) 2.7 10^3/uL (1.7-8.2); BASOPHILS % (AUTO) 0.5 % (0-2); EOSINOPHILS % (AUTO) 3.4 % (0-6); HEMATOCRIT 36.8 % (36.0-47.0); HEMOGLOBIN 12.5 g/dL (12.0-15.5); LYMPHOCYTES % (AUTO) 43.4 % (13-45); MEAN CORPUSCULAR HEMOGLOBIN 29.1 pg (27.0-33.4); MEAN CORPUSCULAR HGB CONC 33.9 g/dL (32.0-36.0); MEAN CORPUSCULAR VOLUME 86 fl (80-97); MONOCYTES % (AUTO) 6.2 % (3-13); PLATELET COUNT 197 10^3/uL (150-450); RED BLOOD COUNT 4.29 10^6/uL (3.72-5.28); RED CELL DISTRIBUTION WIDTH 14.1 % (11.5-14.0); SEGMENTED NEUTROPHILS % (AUTO) 46.5 % (42-78); TOTAL CELLS COUNTED % (AUTO) 100 %; WHITE BLOOD COUNT 5.7 10^3/uL (4.0-10.5)
[2020-07-21 10:19] LABS: ALBUMIN 3.9 g/dL (3.5-5.0); ALKALINE PHOSPHATASE 66 U/L (38-126); ANION GAP 6 (5-19); ASPARTATE AMINO TRANSFERASE 23 U/L (14-36); BILIRUBIN,DIRECT 0.2 mg/dL (0.0-0.4); BLOOD UREA NITROGEN 20 mg/dL (7-20); CALCIUM 9.5 mg/dL (8.4-10.2); CARBON DIOXIDE 28 mmol/L (22-30); CHLORIDE 105 mmol/L (98-107); CHOLESTEROL 151.89 mg/dL (0-200); GLUCOSE 105 mg/dL (75-110); POTASSIUM 4.1 mmol/L (3.6-5.0); TOTAL PROTEIN 6.8 g/dL (6.3-8.2); TRIGLYCERIDES 172 mg/dL (<150)
[2020-07-21 10:30] LABS: DIRECT LDL 75 mg/dL (<100)
[2020-07-21 11:09] LABS: VLDL CHOLESTEROL 34.4 mg/dL (10-31)
== END ==
LOC: OD 08:36
PROVIDERS: ATTEND Family Medicine
DX: E78.2 Mixed hyperlipidemia (principal); D51.0 Vitamin B12 deficiency anemia due to intrinsic factor deficiency; Z13.1 Encounter for screening for diabetes mellitus; Z13.0 Encounter for screening for diseases of the blood and blood-forming organs and certain disorders involving the immune mechanism; R73.01 Impaired fasting glucose
CPT/HCPCS: 36415; 80053; 80061; 82607; 83036; 85025